=== PATIENT | male | born 1960 | race Caucasian/White ===

== ENCOUNTER 2020-12-27 08:05 | Observation (INO) ==
--- NOTE | 2020-12-21 08:56 | Anesthesiology Consultation ---
Date of Service December 21, 2020 Assessment & Plan (1) Encounter for pre-operative examination: Chart Review Chart Review: Pending: Refer to Additional Notes / Consult section (preop cardio clearance scheduled 12/23 ) and Patient NOT seen in Pre Admission Testing -Pt scheduled for preop cardio clearance by PCP after EKG- cardio clearance appt scheduled 12/23/20 Per nursing assessment on 12/12/20, patient denies any recent travel. No known Covid positive contacts or Covid related symptoms recently. Pt did test Covid positive 10/18/20- had headache, loss of taste and smell- symptoms have since resolved. Covid test 12/20/20= negative History Surgery Operation Date: 12/26/20 08:40 Proposed Procedures p Bilateral Open Inguinal Hernia Repair - Greg Welch MD, FACS Height/Weight Height: 5 ft 7 in Weight: 79.379 kg Allergies Allergy/AdvReac Type Severity Reaction Status Date / Time No Known Allergies Allergy Verified 12/12/20 11:43 Medications Home Medications Medication Instructions Recorded Confirmed Last Taken omeprazole 20 mg tablet,delayed 20 mg PO QAM 10/04/20 12/12/20 Unknown release aspirin [Aspir-81] 81 mg PO DAILY PRN 12/12/20 12/12/20 Unknown doxazosin 4 mg PO HS 12/12/20 12/12/20 Unknown multivitamin [One A Day] 1 tab PO DAILY 12/12/20 12/12/20 Unknown Past Medical History Medical History (Updated 12/21/20 @ 09:02 by Dian Islas PA-C) BPH (benign prostatic hyperplasia) Cardiac murmur as child> grew out of GERD (gastroesophageal reflux disease) High blood pressure High cholesterol History of COVID-19 Oct 18 2020 Pancreatic pseudocyst/cyst 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 Was all caused by drinking alcohol but is off of alchol since 2005. Sleep apnea mild> no device Past Family History Family History Grandfather (Maternal) Alcohol abuse Mother Breast cancer Hypertension Father Heart disease Myocardial infarction Colonic polyp gets every 5 yrs Hypertension Denies family history of Ovarian cancer Prostate cancer Colorectal cancer Past Surgical History Surgical History History of Maicol-en-Y gastric bypass 2006 Hx of cholecystectomy 2006 Hx of surgical procedure for pancreatic cyst > 2006 [place] teeth extracted x2 Social History Smoking Status: Former smoker Do You Dip or Chew Tobacco: Yes (1 can per day) Smoking End Date: 2005 Hx Alcohol Use: No Hx Substance Use: No substance use type: does not use Testing Laboratory Results Laboratory Tests 12/20/20 12/20/20 08:44 08:44 WBC 5.49 Hgb 15.2 Hct 44.6 Plt Count 287 Sodium 141 Potassium 3.8 Chloride 105 Carbon Dioxide 27 BUN 14 Creatinine 1.03 Glucose 118 H Electrocardiogram Date: 12/20/20 SR with at 83bpm. Possible LAE. Incomplete RBBB. LAFB.
[~2020-12-27 08:05] MED LIST: LACTATED RINGER'S 1,000 ML IV SCH; ceFAZolin 2000MG 2,000 MG/15 ML SYR IV SCH
[2020-12-27] MEDS ORDERED: BUPIVACAINE 0.5 % 5 MG/1 ML MPF 30ML VIAL ONE ×2 (08:32→10:10)
[2020-12-27] MEDS ORDERED: fentaNYL citrate 100 MCG/2 ML VIAL ONE (08:49)
[2020-12-27] MEDS ORDERED: ONDANSETRON INJ 2 MG/ML 2 ML VIAL ONE (08:49)
[2020-12-27] MEDS ORDERED: PROPOFOL IV EMULSION 10 MG/ML 20 ML VIAL IV ONE (08:49)
[2020-12-27] MEDS ORDERED: LIDOCAINE HCL 2% 2 ML VIAL/AMP(20MG/ML) INFIL ONE (08:49)
[2020-12-27] MEDS ORDERED: MIDAZOLAM HCL 1 MG/ML 2ML VIAL ONE (08:49)
--- NOTE | 2020-12-27 08:51 | History & Physical Bridge Note ---
Date of Service December 27, 2020 History & Physical Bridge Note I have examined the patient, reviewed the History & Physical and in the interval since the performance of the History & Physical I have noted the following changes of clinical significance: no changes noted
[2020-12-27] MEDS ORDERED: HYDROmorphone INJ 2 MG/ML SYR/VIAL IV PRN (09:19)
[2020-12-27] MEDS ORDERED: fentaNYL citrate 100 MCG/2 ML VIAL IV PRN (09:19)
[2020-12-27] MEDS ORDERED: ATROPINE SULFATE 0.1 MG/ML 10ML SYR IV PRN (09:19)
[2020-12-27] MEDS ORDERED: ONDANSETRON INJ 2 MG/ML 2 ML VIAL IV PRN ×2 (09:19→10:49)
[2020-12-27] MEDS ORDERED: ePHEDrine sulfate 50 MG/ML AMP IV PRN (09:19)
[2020-12-27] MEDS ORDERED: METOCLOPRAMIDE HCL INJ 5 MG/ML 2 ML VIAL IV PRN (09:19)
[2020-12-27] MEDS ORDERED: ACETAMINOPHEN 1,000 MG/100 ML VIAL IV STA (09:19)
[2020-12-27] MEDS ORDERED: PROMETHAZINE HCL 12.5 MG in SODIUM CHLORIDE 0.9% 50 ML IV PRN ×2 (09:19→10:49)
[2020-12-27] MEDS ORDERED: NEOSTIGMINE METHYLSULFATE 5 MG/5 ML SYR ONE (10:35)
[2020-12-27] MEDS ORDERED: GLYCOPYRROLATE 0.2 MG/ML VIAL ONE (10:35)
[2020-12-27] MEDS ORDERED: ACETAMINOPHEN 1,000 MG/100 ML VIAL IV ONE (10:44)
--- NOTE | 2020-12-27 10:44 | Post Operative Brief Note ---
PG Immediate Post Op with CF Date of Surgery December 27, 2020 Pre & Post Diagnosis Operation Date: 12/27/20 09:40 Pre-Op Diagnosis: Bilateral Inguinal Hernia Post-Op Diagnosis: Bilateral Inguinal Hernia-indirect defects I identified the patient and participated in the time-out.: Yes Procedure Operation Date: 12/27/20 09:40 Actual Procedures p Bilateral Open Inguinal Hernia Repair(Bilateral) - Greg Welch MD, FACS Surgeon Greg Welch MD, FACS [employer] D[employer] Gatito Abreu Estimated Blood Loss 5 Findings Consistent with Post-Op Diagnosis Specimens Specimen Description: none per surgeon Drains Deleon Catheter
[2020-12-27] MEDS ORDERED: HYDROmorphone INJ 0.5 MG/0.5 ML SYR IV PRN (10:47)
[2020-12-27] MEDS ORDERED: HYDROCODONE/ACETAMOPHEN 5/325MG TAB PO PRN ×2 (10:47)
[2020-12-27] MEDS ORDERED: ACETAMINOPHEN 325 MG TAB PO PRN (10:47)
[2020-12-27] MEDS ORDERED: IBUPROFEN 600 MG TAB PO PRN (10:47)
[2020-12-27] MEDS ORDERED: PROMETHAZINE HCL 25 MG in SODIUM CHLORIDE 0.9% 50 ML IV PRN (10:49)
[2020-12-27] MEDS ORDERED: SODIUM CHLORIDE 0.9% 500 ML IV SCH (11:00)
[2020-12-27] MEDS: TAMSULOSIN HCL 0.4 MG CAP PO SCH ×2 (12:35→20:09)
--- NOTE | 2020-12-27 13:11 | Anesthesiology Progress Note ---
Date of Service December 27, 2020 Anesthesia Post Procedure Vital Signs Vital Signs: Temp Pulse Pulse Resp BP BP Pulse Ox 12/27/20 13:03 96 H 16 122/79 94 12/27/20 12:07 57 L 16 111/68 94 12/27/20 11:45 36.6 C 61 16 107/68 94 12/27/20 11:40 72 14 124/66 95 12/27/20 11:30 36.8 C 67 12 124/66 94 12/27/20 11:20 69 15 126/97 95 12/27/20 11:10 65 12 121/74 99 12/27/20 11:00 63 15 102/81 99 12/27/20 10:54 36.8 C 80 17 115/79 98 12/27/20 08:46 36.6 C 96 H 18 133/99 97 Pain Intensity Bilateral Groin: Pain Intensity: 0 Transfer of Care Handoff Completed per policy Notes Mental Status: alert / awake / arousable and participated in evaluation Patient Amnestic to Procedure: Yes Nausea / Vomiting: adequately controlled Pain: adequately controlled Airway Patency, RR, SpO2: stable & adequate BP & HR: stable & adequate Hydration State: stable & adequate Anesthetic Complications: no major complications apparent
--- NOTE | 2020-12-27 13:43 | Operative Report (OR) ---
DATE OF OPERATION: 12/27/2020 NAME OF OPERATION: Bilateral inguinal hernia repair. PREOPERATIVE DIAGNOSIS: Bilateral inguinal hernias. POSTOPERATIVE DIAGNOSES: Bilateral inguinal hernias with bilateral inguinal defects left side larger with colon involved. STAFF SURGEON: Greg Welch MD. GOLF CADDIE: Aydin Abreu PA-C. ANESTHESIA: General. DESCRIPTION OF PROCEDURE: The patient was brought in the operating room and placed on the operating table in supine position. His lower abdomen was prepped and draped in the usual fashion. Deleon catheter and orogastric tube were placed. The left side was approached first. Both sides were done in an identical fashion. 0.5% plain Marcaine was used to anesthetize skin and subcutaneous tissue. Incision made parallel to the inguinal ligament, carrying dissection down identifying the external oblique fibers incising them along their length to the external ring. Cord structures were mobilized. The patient had a very large indirect hernia sac containing colon in the left side. This was dissected away from the cord structures, then reduced. The internal ring was then reinforced using a mesh plug, secured to surrounding tissue using 0 silk suture. Large mesh patch placed into the floor of the canal, secured to surrounding tissue using 2-0 Ethibond suture. I was able to identify the ilioinguinal and iliohypogastric nerves on both sides. A mesh was secured using 2-0 Ethibond suture, then irrigated with antibiotic solution and then the external oblique fibers closed over the mesh around the cord structures using 2-0 Ethibond suture. Subcutaneous tissue reapproximated using 2-0 plain suture. The deep tissue was anesthetized using 0.5% plain Marcaine. Then the skin reapproximated using 4-0 nylon with Steri-Strips. Right side was completed in a similar fashion, the hernia sac was smaller, but it was reduced the same way, plug and patch placed and then the closure was the same, and the skin closed using 4-0 nylon and Steri-Strips. Dressings applied and patient transferred to recovery room in stable condition. My school bus driver/teacher assistant helped with prepping, draping, repair of both hernias and closure of the wounds. I attest to the content of the Intraoperative Record and any orders documented therein. Any exception s are noted below.
[2020-12-27] MEDS: ceFAZolin 1000MG 1,000 MG/7.5 ML SYR IV SCH (16:39)
[2020-12-27] MEDS: MAGNESIUM HYDROXIDE SUSP 30 ML UDC PO SCH (20:09)
[2020-12-27] MEDS: DOCUSATE SODIUM/SENNA 50/8.6MG TAB PO SCH (20:09)
[2020-12-28] MEDS: ceFAZolin 1000MG 1,000 MG/7.5 ML SYR IV SCH ×2 (00:27→08:02)
[2020-12-28] MEDS: MAGNESIUM HYDROXIDE SUSP 30 ML UDC PO SCH (08:03)
[2020-12-28] MEDS: DOCUSATE SODIUM/SENNA 50/8.6MG TAB PO SCH (08:03)
--- NOTE | 2020-12-28 08:21 | Discharge Summary (DS) ---
PRINCIPAL DIAGNOSIS: Bilateral inguinal hernia. PROCEDURES: The patient underwent open bilateral inguinal hernia repair. HISTORY OF PRESENT ILLNESS: The patient is a 60-year-old male with known bilateral inguinal hernias with the left side being very large and into the scrotum. The patient was brought in the hospital on 12/27/2020 where he underwent open bilateral inguinal hernia repair. The patient did have a history of some urinary hesitancy, so we did keep him overnight and placed him on Flomax. He did very well overnight and was felt stable for discharge home today to be followed in the surgical clinic within 1 week.
--- NOTE | 2020-12-28 08:37 | Anesthesiology Progress Note ---
Date of Service December 28, 2020 Anesthesia Post Procedure Vital Signs Vital Signs: Temp Pulse Pulse Resp BP BP Pulse Ox 12/28/20 07:38 36.3 C L 53 L 16 147/75 H 95 12/28/20 03:31 36.3 C L 53 L 19 122/71 96 12/27/20 23:01 36.8 C 44 L 18 111/69 95 12/27/20 19:51 36.8 C 58 L 20 143/86 H 93 12/27/20 13:45 73 16 121/69 95 12/27/20 13:03 96 H 16 122/79 94 12/27/20 12:07 57 L 16 111/68 94 12/27/20 11:45 36.6 C 61 16 107/68 94 12/27/20 11:40 72 14 124/66 95 12/27/20 11:30 36.8 C 67 12 124/66 94 12/27/20 11:20 69 15 126/97 95 12/27/20 11:10 65 12 121/74 99 12/27/20 11:00 63 15 102/81 99 12/27/20 10:54 36.8 C 80 17 115/79 98 12/27/20 08:46 36.6 C 96 H 18 133/99 97 Pain Intensity Bilateral Groin: Pain Intensity: 0 Notes Mental Status: alert / awake / arousable and participated in evaluation Patient Amnestic to Procedure: Yes Nausea / Vomiting: see Notes below Pain: adequately controlled Airway Patency, RR, SpO2: stable & adequate BP & HR: stable & adequate Hydration State: stable & adequate Anesthetic Complications: no major complications apparent and Pt Satisfied with anesthetic care
[2020-12-28] MEDS ORDERED: PANTOprazole 40 MG TAB PO SCH (09:00)
[2020-12-28] MEDS ORDERED: DOXAZosin MESYLATE 4 MG TAB PO SCH (21:00)
== END 2020-12-28 09:23 | disposition home or self-care (01) ==
LOC: 3W 08:05 → ASU 08:05